=== PATIENT | male | born 2000 | race Caucasian/White ===

== ENCOUNTER 2021-04-02 17:23 | Emergency (ER) | payer OTHER, SELFPAY ==
[2021-04-02 17:23] VITALS: BP 154/81; PULSE 87; RESP 15; TEMP 36.7; O2SAT 96; BMI 33.0
--- NOTE | 2021-04-02 17:49 | CT_ITS ---
HISTORY: Head inj Sat, forgetful, IGLESIAS TECHNIQUE: Multiple axial images were obtained of the brain without intravenous contrast. A radiation dose optimization technique was used for this scan. IV Contrast dosage and agent: None. COMPARISON: None FINDINGS: # of images incl. paperwork: 247 PARANASAL SINUSES AND MASTOID AIR CELLS: Clear. INTRACRANIAL HEMORRHAGE: None. BRAIN PARENCHYMA: No CT evidence of stroke. No intracranial masses. There is preservation of the hernandez/white matter interface. Posterior fossa structures are unremarkable. CSF SPACES: Appropriate for age. There is no hydrocephalus. MASS EFFECT: None. CALVARIUM: Intact. CT/Brain/Head without Contrast IMPRESSION: No acute intracranial findings. Individualized dose optimization techniques were used for this CT. at 1838 Reported and signed by: Lalit Salgado MD Electronically Signed: Lalit Salgado MD at 18:37 EDT Tel , Service support ,
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
[2021-04-02 19:35] VITALS: BP 134/74; PULSE 82; RESP 18; O2SAT 100
== END 2021-04-02 19:39 | disposition home or self-care (01) ==
PROVIDERS: Emergency Provider Emergency Medicine
DX: F07.81 Postconcussional syndrome (principal)
CPT/HCPCS: 70450; 99283

== ENCOUNTER 2021-08-23 18:22 | Emergency (ER) | payer BC, OTHER, SELFPAY ==
[2021-08-23 18:23] VITALS: BP 190/93; PULSE 95; RESP 16; TEMP 36.7; O2SAT 97; BMI 35.6
[2021-08-23 18:27] VITALS: BP 190/93
--- NOTE | 2021-08-23 18:28 | ED.RN ---
PT HAS POINT TENDERNESS ON CERVICAL SPINE, C-COLLAR PLACED IN TRIAGE
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
[2021-08-23] MEDS: Ceftriaxone 1 GM/50 ML BAG IV (19:43)
[2021-08-23] MEDS: Ondansetron 4 MG/2 ML Vial IV (19:44)
[2021-08-23] MEDS: Morphine 4 MG/ML Syringe IV (19:44)
[2021-08-23] MEDS: 0.9% Normal Saline 1,000 ML 999 ML IV (19:44)
[2021-08-23 19:53] LABS: Absolute Lymphocyte Count 2.48 X10^3/uL (0.83-4.51); Absolute Neutrophil Count 9.1 X10^3/uL (2.0-7.7); Basophil# 0.02 X10^3/uL; Basophil% 0.2 % (0-1); Eosinophil# 0.04 X10^3/uL; Eosinophils% 0.3 % (0-5); Hematocrit 44.7 % (40-54); Hemoglobin 15.1 g/dL (13.0-16.5); Lymphocyte # 2.48 X10^3/ul (0.83-4.51); Lymphocyte % 19.7 % (19-41); Mean Corp Hgb Conc 33.8 g/dL (32-36); Mean Corpuscular Hgb 28.6 pg (27.0-32.0); Mean Corpuscular Volume 84.7 fL (80-94); Mean Platelet Vol. 9.3 fl (6.2-12.0); Monocyte# 0.98 X10^3/uL; Monocyte% 7.8 % (0-10); NRBC Flagged by Analyzer 0 % (0-5); Neutrophil # 9.05 X10^3/uL (2.7-7.7); Neutrophil % 71.8 % (47-70); Platelet Count 242 K/mm3 (150-450); RBC Distribution Width CV 13.7 % (11.6-14.6); RBC Distribution Width SD 42.7 fl (35.1-43.9); Red Blood Count 5.28 M/mm3 (4.6-6.2); White Blood Count 12.6 K/mm3 (4.4-11.0)
[2021-08-23 19:53] LABS: Bacteria 0 SEEN /hpf (None Seen); Color, Urine Yellow (Yellow); Glucose, Dipstick Normal (Normal); Ketone-Dipstick 15 mg/dl (Negative); Leukocyte Esterase-Dipstick Negative /ul (Negative); Mucous, Urine 0 SEEN /hpf (<or=2+); Nitrite-Dipstick Negative (Negative); Occult Blood-Urine 10 /ul (Negative); Protein-Dipstick Negative (Negative); Red Blood Cells-Urine 0 SEEN /hpf (0-5); Specific Gravity, Urine 1.015 (1.002-1.030); Squamous Epithelial Cells - UA 0 SEEN /hpf (0-5); Urine Bilirubin Dipstick Negative (Negative); Urine Clarity Clear (Clear); Urine Urobilinogen Normal (Normal); White Blood Cells 0 SEEN /hpf (0-5)
[2021-08-23 20:06] LABS: Anion Gap 7 (5-15); BUN 14 mg/dL (7-18); BUN/Creat Ratio 13.3 RATIO (10-20); Calcium,Total 9.2 mg/dL (8.5-10.1); Chloride 103 mmol/L (98-107); Creatinine, Serum 1.05 mg/dL (0.70-1.30); EST Glomerular Filtration Rate 94 mL/min (>60); Est Glom Filt Rate - Afr Amer 114 mL/min (>60); Estimated Creatinine Clearance 114.91 ml/min; Glucose 98 mg/dL (74-106); Potassium 3.6 mmol/L (3.5-5.1); Sodium Level 136 mmol/L (136-145)
[2021-08-23 20:11] VITALS: BP 129/59; PULSE 74; RESP 14; O2SAT 94
[2021-08-23] MEDS: Ketorolac 30 MG/ML Syringe IV (20:38)
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
== END 2021-08-23 21:47 | disposition home or self-care (01) ==
PROVIDERS: Emergency Provider Emergency Medicine
DX: S16.1XXA Strain of muscle, fascia and tendon at neck level, initial encounter (principal); V28.4XXA Motorcycle driver injured in noncollision transport accident in traffic accident, initial encounter
CPT/HCPCS: 72125; 80048; 81001; 85025; 96365; 96375; 99283; J7030; A4216; J2405